=== PATIENT | female | born 1955 | race Caucasian/White ===

== ENCOUNTER 2019-03-16 17:10 | Inpatient (IN) | payer MEDICAID, OTHER ==
[~2019-03-16] VITALS: Ht 160 cm; Wt 65.3 kg
[2019-03-16] MEDS ORDERED: SODIUM CHLORIDE 0.9% 1,000 ML IVB ONE (18:43)
[2019-03-16] MEDS ORDERED: ONDANSETRON HCL 4 MG/2 ML VIAL IV ONE (18:45)
[2019-03-16] MEDS ORDERED: AZITHROMYCIN 500MG/ 250ML 250 ML IV ONE ×2 (19:30→19:49)
[2019-03-16] MEDS ORDERED: cefTRIAXone 1GM/50ML D5W 50 ML IV ONE (19:30)
[2019-03-16 19:31] LABS: Basophils # (auto) 0 uL; Basophils % (auto) 0.5 % (0.0-2.0); Eosinophils # (auto) 0 uL; Eosinophils % (auto) 0.1 % (0.0-7.0); Hematocrit 37.2 % (36.0-46.0); Hemoglobin 12.7 g/dL (12.2-16.2); Lymphocytes # (auto) 1.3 uL; Lymphocytes % (auto) 16.8 % (10.0-50.0); Mean Corpuscular Hemoglobin 30.2 pg (28.0-32.0); Mean Corpuscular Hgb Conc. 34.1 g/dL (32.0-36.0); Mean Corpuscular Volume 88.7 fL (80.0-100.0); Monocytes # (auto) 0.3 uL; Monocytes % (auto) 4.2 % (0.0-12.0); Neutrophils # (auto) 6.1 uL; Neutrophils % (auto) 78.4 % (37.0-80.0); Nucleated Red Blood Cells % 0.1 %; Platelet Count (auto) 389 10^3/uL (140-450); Red Blood Cells 4.19 10^6/uL (4.0-5.20); Red Cell Distribution Width 14.8 % (11.8-14.3); White Blood Cell 7.7 10^3/uL (4.4-10.8)
[2019-03-16 19:40] LABS: Urine Bacteria MANY /hpf (None Seen); Urine Blood TRACE /uL (Negative); Urine Mucus FEW (None Seen); Urine Specific Gravity 1.025 (1.001-1.035); Urine WBC 70 /hpf (0 - 5)
[2019-03-16 19:44] LABS: INR 1.04 (0.9-1.15); Partial Thromboplastin Time 28.6 sec (23.64-32.05)
[2019-03-16 19:52] LABS: Alanine Aminotransferase 64 U/L (13-56); Anion Gap 12 (5-15); Blood Urea Nitrogen 35 mg/dL (7-18); Carbon Dioxide 23 mmol/L (21-32); Chloride 98 mmol/L (98-107); Glucose 275 mg/dL (74-106); Magnesium 2.5 mg/dL (1.6-2.6); Sodium 133 mmol/L (136-145)
[2019-03-16 19:57] LABS: Alkaline Phosphatase 211 U/L (45-117); Aspartate Aminotransferase 72 U/L (15-37); BUN/Creatinine Ratio 29.4; GFR African American 59 mL/min; GFR Non-African American 49 mL/min; Total Protein 7.8 g/dL (6.4-8.2)
[2019-03-16 20:04] LABS: Amylase 24 U/L (25-115); Lipase 51 U/L (73-393)
[2019-03-16] MEDS ORDERED: SODIUM CHLORIDE 0.9% 500 ML IV ONE (21:30)
[2019-03-16] MEDS ORDERED: ONDANSETRON HCL 4 MG/2 ML VIAL IV PRN (21:45)
[2019-03-16] MEDS ORDERED: TEMAZEPAM 15 MG CAP PO PRN (21:45)
[2019-03-16] MEDS ORDERED: PROMETHAZINE W/CODEINE 5 ML ORAL SYRUP PO ONE (21:45)
[2019-03-16 22:03] VITALS: BP 126/83
--- NOTE | 2019-03-16 22:03 | NUR ---
MS admit from ER BHUPINDERSTEPHANIE admitted to tele/MS after SBAR received. Patient oriented to Ev Rangel RN primary RN, unit, room, bed, and unit policies regarding patient care and visiting hours. Placed on two liters nasal cannula. Bed is in lowest locked position with bed rails up x2 and call light is withi reach of the patient. Patient weighed by bedscale and encouraged to call if they need something. All questions and concerns addressed, patient verbalized understanding.
[2019-03-16] MEDS: FAMOTIDINE 20 MG TAB PO SCH (22:25)
[2019-03-16] MEDS: guaiFENesin-DM 100/10mg/5ml SYR PO PRN (22:25)
[2019-03-16 22:28] VITALS: BP 126/83
[2019-03-16] MEDS: POTASSIUM CHL 20MEQ/100ML 100 ML IV SCH (22:36)
[2019-03-16] MEDS: SODIUM CHLORIDE 0.9% 1,000 ML IV SCH (23:53)
[2019-03-17] MEDS: POTASSIUM CHL 20MEQ/100ML 100 ML IV SCH (01:36)
[2019-03-17] MEDS ORDERED: DEXTROSE (50%) 50ML SYRG IV PRN (02:45)
[2019-03-17] MEDS: guaiFENesin-DM 100/10mg/5ml SYR PO PRN ×2 (02:54→20:14)
[2019-03-17 05:06] VITALS: BP 122/71
[2019-03-17] MEDS: InsuLIN REG 1unit/0.01ml Soln (100units/ml) SC SCH ×4 (05:57→23:41)
[2019-03-17] MEDS: ACCU-CHEK COMFORT CURVE STRIP VI SCH ×4 (05:58→23:41)
--- NOTE | 2019-03-17 06:30 | NUR ---
[facility] Hospitalist regarding patients cough: Patient stated "This cough medicine isnt working. Is there something else I could try!" Patient has a prn Robitussin that patient says wasnt working for her. Paged hospitalist to ask if patient can have something else for cough.
--- NOTE | 2019-03-17 07:00 | NUR ---
Hospitalist called back: Hospitalist Jorje called back, told hospitalist that patients claire wasnt working for her cough. Hospitalist stated "I will take a look at her chart." Provided Hospitalist with room number and patients name to look at patients medication. Notified day shift nurse.
[2019-03-17 07:27] LABS: Albumin 1.6 g/dL (3.4-5.0); Calcium 7.9 mg/dL (8.5-10.1); Potassium 3.3 mmol/L (3.5-5.1)
[2019-03-17 07:31] LABS: BUN/Creatinine Ratio 30.2; Bilirubin, Total 0.6 mg/dL (0.2-1.0); Total Protein 6.4 g/dL (6.4-8.2)
--- NOTE | 2019-03-17 07:38 | NUR ---
Opening Shift Note Assumed care of patient, awake and alert x4 on 2 L NC, No S/S of distress/SOB or pain. Bed at lowest position ad call light within reach. Emptied and cleaned bedside commode. Instructed on POC and to call for assist PRN, will continue to monitor for changes Q1hr and PRN.
[2019-03-17 07:45] VITALS: BP 127/79
[2019-03-17 07:50] LABS: Basophils # (auto) 0 uL; Basophils % (auto) 0.7 % (0.0-2.0); Eosinophils # (auto) 0.1 uL; Eosinophils % (auto) 1.3 % (0.0-7.0); Hematocrit 35.2 % (36.0-46.0); Hemoglobin 11.9 g/dL (12.2-16.2); Lymphocytes # (auto) 1.5 uL; Lymphocytes % (auto) 27.3 % (10.0-50.0); Mean Corpuscular Hemoglobin 30.7 pg (28.0-32.0); Mean Corpuscular Hgb Conc. 33.9 g/dL (32.0-36.0); Mean Corpuscular Volume 90.3 fL (80.0-100.0); Monocytes # (auto) 0.3 uL; Monocytes % (auto) 5.9 % (0.0-12.0); Neutrophils # (auto) 3.5 uL; Neutrophils % (auto) 64.8 % (37.0-80.0); Nucleated Red Blood Cells % 0.1 %; Platelet Count (auto) 337 10^3/uL (140-450); Red Blood Cells 3.89 10^6/uL (4.0-5.20); White Blood Cell 5.3 10^3/uL (4.4-10.8)
[2019-03-17 09:00] VITALS: BP 127/79
[2019-03-17] MEDS: cefTRIAXone 1GM/50ML D5W 50 ML IV SCH (10:14)
[2019-03-17] MEDS: FAMOTIDINE 20 MG TAB PO SCH ×2 (10:14→21:37)
[2019-03-17] MEDS: AZITHROMYCIN 500MG/ 250ML 250 ML IV SCH (10:15)
[2019-03-17] MEDS: SODIUM CHLORIDE 0.9% 1,000 ML IV SCH ×2 (11:50→23:45)
--- NOTE | 2019-03-17 12:13 | NUR ---
Nutrition consult/assessment Notes please see attached link for complete assessment Est. Needs BW 61 [id number] kcal (25-30 kcal/kgBW), 61-79 gms pro (1.0-1.3 gms/kgBW r/t severe hypoalb). Will continue to monitor pertinent labs and reassess nutrient need prn Addendum: 03/17/19 at [address] Amended: Links added.
--- NOTE | 2019-03-17 12:38 | NUR ---
Pt requested a POA form. boom worker educated the pt about the use of the form.
--- NOTE | 2019-03-17 12:42 | NUR ---
Pt requested a POA. Pt was educated on the use of the form and how to fill it out.
[2019-03-17 13:00] VITALS: BP 133/79
--- NOTE | 2019-03-17 15:16 | NUR ---
Paged for Dr. Jj. Patient is requesting additional medication for her cough. Patient states that Robitussin cough syrup is not helping her. Awaiting call back.
[2019-03-17 16:36] VITALS: BP 137/83
--- NOTE | 2019-03-17 19:35 | NUR ---
Opening Shift Note Assumed care of patient, awake and alert oriented x4. No S/S of distress/SOB or pain noted. Bed is in lowest locked position with bed rails up x4 and call light is within reach of the patient. Instructed on POC and to call for assist PRN.
[2019-03-17] MEDS: ACETAMINOPHEN 325 MG TAB PO PRN (20:15)
[2019-03-17] MEDS: Pro-Stat SF 30ml Vanilla PO SCH (21:38)
[2019-03-18 00:02] VITALS: BP 135/77
[2019-03-18] MEDS: guaiFENesin-DM 100/10mg/5ml SYR PO PRN ×2 (04:48→11:41)
[2019-03-18] MEDS: ACETAMINOPHEN 325 MG TAB PO PRN ×3 (04:49→18:35)
[2019-03-18 05:22] VITALS: BP 143/84
[2019-03-18] MEDS: InsuLIN REG 1unit/0.01ml Soln (100units/ml) SC SCH ×3 (05:55→18:00)
[2019-03-18] MEDS: ACCU-CHEK COMFORT CURVE STRIP VI SCH ×3 (05:55→18:10)
--- NOTE | 2019-03-18 07:00 | NUR ---
Hospitalist called back: Hospitalist Jorje called back, told hospitalist that patients Mesfin wasnt working for her cough. Hospitalist stated "I will take a look at her chart." Provided Hospitalist with room number and patients name to look at patients medication. Will endorse to day shift nurse Addendum: 03/19/19 at 0700 by Ev Rangel RN RN Wrong date: meant for 03/17/2019
[2019-03-18] MEDS: AZITHROMYCIN 500MG/ 250ML 250 ML IV SCH (09:10)
[2019-03-18] MEDS: cefTRIAXone 1GM/50ML D5W 50 ML IV SCH (09:10)
[2019-03-18] MEDS: FAMOTIDINE 20 MG TAB PO SCH ×2 (09:10→21:52)
[2019-03-18] MEDS: Pro-Stat SF 30ml Vanilla PO SCH ×2 (09:57→21:54)
[2019-03-18 09:58] VITALS: BP 149/92
[2019-03-18 13:41] VITALS: BP 140/94
[2019-03-18] MEDS: SODIUM CHLORIDE 0.9% 1,000 ML IV SCH (14:30)
[2019-03-18 17:30] VITALS: BP 154/90
--- NOTE | 2019-03-18 19:35 | NUR ---
Opening Shift Note Assumed care of patient, awake and alert oriented x4. No S/S of distress/SOB noted. Bed is in lowest locked position with bed rails up x2 and call light is within reach of the patient. Instructed on POC and to call for assist PRN.
[2019-03-18 21:51] VITALS: BP 143/93
[2019-03-19] MEDS: InsuLIN REG 1unit/0.01ml Soln (100units/ml) SC SCH ×4 (00:16→18:00)
[2019-03-19] MEDS: ACCU-CHEK COMFORT CURVE STRIP VI SCH ×4 (00:17→18:00)
--- NOTE | 2019-03-19 00:30 | NUR ---
Patient changed rooms from 251A to 231. All belongings transferred to patients room. No s/s of distress or SOB noted. Patient tolerated well.
[2019-03-19] MEDS: ACETAMINOPHEN 325 MG TAB PO PRN ×3 (00:38→22:35)
[2019-03-19] MEDS: SODIUM CHLORIDE 0.9% 1,000 ML IV SCH ×2 (03:50→17:10)
[2019-03-19 05:22] VITALS: BP 136/87
--- NOTE | 2019-03-19 07:09 | NUR ---
Closing note: Patient resting in bed with breaths even and unlabored. No s/s of distress SOB noted. Will endorse care to day shift nurse.
[2019-03-19 08:13] VITALS: BP 156/91
[2019-03-19] MEDS: cefTRIAXone 1GM/50ML D5W 50 ML IV SCH (08:24)
[2019-03-19] MEDS: Pro-Stat SF 30ml Vanilla PO SCH ×2 (09:56→21:46)
[2019-03-19] MEDS: AZITHROMYCIN 500MG/ 250ML 250 ML IV SCH (09:56)
[2019-03-19] MEDS: FAMOTIDINE 20 MG TAB PO SCH ×2 (09:56→21:46)
[2019-03-19] MEDS: guaiFENesin-DM 100/10mg/5ml SYR PO PRN (10:23)
[2019-03-19 12:24] VITALS: BP 155/93
[2019-03-19 17:28] VITALS: BP 131/84
--- NOTE | 2019-03-19 18:00 | NUR ---
Pt alert and oriented, showing no change from initial assessment. Tylenol given, times one, during this shift for c/o right rib pain, with good effectiveness. No other c/o pain or discomfort.
--- NOTE | 2019-03-19 19:10 | NUR ---
Opening Shift Note Received report from martha Stephen RN. Assumed care of patient, awake and alert oriented x4 amd ambulatory. No S/S of distress/SOB or pain noted. Bed is in lowest locked position with bed rails up x4 and call light is within reach of the patient. Instructed on POC and to call for assist PRN.
[2019-03-19 20:00] VITALS: BP 150/97
[2019-03-19 22:00] VITALS: BP 150/97
[2019-03-20] MEDS: ACCU-CHEK COMFORT CURVE STRIP VI SCH ×4 (00:28→18:10)
[2019-03-20] MEDS: InsuLIN REG 1unit/0.01ml Soln (100units/ml) SC SCH ×4 (00:29→18:10)
[2019-03-20 05:00] VITALS: BP 145/91
[2019-03-20] MEDS: SODIUM CHLORIDE 0.9% 1,000 ML IV SCH ×2 (05:44→19:50)
--- NOTE | 2019-03-20 07:48 | NUR ---
OPENING SHIFT NOTE ASSUMED CARE OF PATIENT. PATIENT RESTING COMFORTABLY IN BED WITH EYES CLOSED. NO S/S OF DISTRESS OR SOB NOTED. BED IN LOWEST LOCKED POSITION, CALL LIGHT WITHIN REACH. WILL CONTINUE TO MONITOR.
[2019-03-20 08:12] VITALS: BP 146/97
[2019-03-20] MEDS: cefTRIAXone 1GM/50ML D5W 50 ML IV SCH (09:14)
[2019-03-20] MEDS: FAMOTIDINE 20 MG TAB PO SCH ×2 (09:14→22:56)
[2019-03-20] MEDS: ACETAMINOPHEN 325 MG TAB PO PRN ×2 (09:14→18:50)
[2019-03-20] MEDS: AZITHROMYCIN 500MG/ 250ML 250 ML IV SCH (09:59)
[2019-03-20] MEDS: Pro-Stat SF 30ml Vanilla PO SCH ×2 (09:59→22:56)
[2019-03-20 12:49] VITALS: BP 146/98
[2019-03-20 17:00] VITALS: BP 143/98
--- NOTE | 2019-03-20 19:10 | NUR ---
Opening Shift Note Report received from martha Bhagat RN. Assumed care of patient, resting in bed on a high fowlers position, eyes closed with even and unlabored respirations. No S/S of distress/SOB or pain. Instructed on POC and to call for assist PRN, will continue to monitor for changes Q1hr and PRN. Bed placed in lowest position and call light within reach.
--- NOTE | 2019-03-20 19:22 | NUR ---
END OF SHIFT NOTE PATIENT RESTING COMFORTABLY IN BED AT THIS TIME. NO S/S OF DISTRESS OR SOB NOTED. BED IN LOWEST LOCKED POSITION, CALL LIGHT WITHIN REACH. CARE ENDORSED TO NOC RN.
[2019-03-20 20:00] VITALS: BP 144/93
[2019-03-20 22:00] VITALS: BP 142/93
--- NOTE | 2019-03-21 | NUR ---
PATIENT REFUSED BLOOD SUGAR CHECK. PATIENT STATES SHE IS NOT DIABETIC AND INSULIN CAUSES HER HEADACHE. EDUCATED PATIENT ON THE IMPORTANCE OF KNOWING AND CONTROLLING BLOOD SUGAR. PATIENT VERBALIZED UNDERSTANDING, BUT STILL REFUSED TO HAVE IT CHECK.
[2019-03-21 04:39] VITALS: BP 157/90
[2019-03-21] MEDS: InsuLIN REG 1unit/0.01ml Soln (100units/ml) SC SCH ×2 (06:00)
[2019-03-21] MEDS: ACCU-CHEK COMFORT CURVE STRIP VI SCH ×2 (06:00)
--- NOTE | 2019-03-21 07:50 | NUR ---
OPENING SHIFT NOTE ASSUMED CARE OF PATIENT. PATIENT AWAKE AND ALERT SITTING UP IN CHAIR AT BEDSIDE. NO S/S OF DISTRESS OR SOB NOTED. REVIEWED POC WITH PATIENT. PATIENT STATED HER IV IS HURTING AND SHE DOES NOT WANT A NEW IV BECAUSE "EVERYONE IS JUST USING ME FOR PRACTICE OR SOMETHING" AND ALSO IS REFUSING TO HAVE HER BLOOD SUGAR CHECKED BECAUSE PATIENT STATED "I AM NOT DIABETIC, I KNOW MY BODY" THIS RN INSTRUCTED PATIENT ON IMPORTANCE OF HAVING AN IV WHILE IN THE HOSPITAL WELL HER ANTIBIOTIC THERAPY. ALSO INFORMED PATIENT OF IMPORTANCE OF MAINTAINING BLOOD SUGAR WNL PATIENT VERBALIZED UNDERSTANDING BUT STILL REFUSES TO RECEIVE NEW IV ACCESS AND CHECK BLOOD SUGAR. CONTINUING TO MONITOR PATIENT.
[2019-03-21 08:00] VITALS: BP 155/96
[2019-03-21] MEDS: cefTRIAXone 1GM/50ML D5W 50 ML IV SCH (09:00)
[2019-03-21] MEDS: AZITHROMYCIN 500MG/ 250ML 250 ML IV SCH (09:05)
--- NOTE | 2019-03-21 10:25 | NUR ---
AT BEDSIDE DR ARRIAGA AT BEDSIDE AT THIS TIME, NEW ORDERS FOR DISCHARGE. WILL CARRY OUT ORDERS RECEIVED.
[2019-03-21 11:07] VITALS: BP 155/96
--- NOTE | 2019-03-21 12:25 | NUR ---
DISCHARGED PATIENT DISCHARGED HOME VIA AMBULATORY TO PRIVATE FAMILY VEHICLE AFTER ALL DISCHARGE INSTRUCTIONS GIVEN AND ALL QUESTIONS AND CONCERNS ADDRESSED. PATIENT WAS GIVEN EXTENSIVE INFORMATION REGARDING DIABETES INCLUDING, DIABETIC TEACHING CLASS INFORMATION, DIET MANAGEMENT AND MORE. PATIENT WAS ALSO GIVEN COUPON FOR [facility] AND INFORMATION REGARDING DEPARTMENT OF PUBLIC HEALTH, AND [facility]. PATIENT TO FOLLOW UP WITH DR ARRIAGA IN 1 WK BUT UNABLE TO MAKE APPOINTMENT DUE TO LUNCH HOURS. PATIENT GIVEN INFORMATION TO CONTACT DR BELL OFFICE. IV THAT WAS NO LONGER WORKING WAS REMOVED USING CLEAN STERILE TECHNIQUE, PRESSURE DRESSING APPLIED, CATHETER WAS INTACT UPON REMOVAL. PATIENT SHOWED NO S/S OF DISTRESS OR SOB UPON DISCHARGE.
== END 2019-03-21 12:25 | disposition home or self-care (01) | DRG 689 ==
LOC: ER 17:10 → OVERFLOW 21:31 → EAST 22:15
PROVIDERS: ADMIT Nurse Practitioner; ATTEND Internal Medicine Pulmonary Disease
DX: N39.0 Urinary tract infection, site not specified (principal); J18.1 Lobar pneumonia, unspecified organism; E87.1 Hypo-osmolality and hyponatremia; E86.0 Dehydration; E87.6 Hypokalemia; E11.9 Type 2 diabetes mellitus without complications; Z60.2 Problems related to living alone
CPT/HCPCS: 36415; 71046; 74176; 80053; 81001; 82150; 82962; 83036; 83605; 83690; 83735; 84484; 85025; 85610; 85730; 87040; 87086; 93005; 94761; 96361; 96365; 96375; G0378; J0696; J1815; J2405; J3480

== ENCOUNTER 2020-02-21 14:02 | Emergency (ER) | payer MEDICAID ==
[~2020-02-21] VITALS: Ht 167.6 cm; Wt 54.4 kg
[2020-02-21 15:10] VITALS: BP 157/90
== END 2020-02-21 16:54 | disposition home or self-care (01) ==
LOC: ER 14:02
DX: S46.911A Strain of unspecified muscle, fascia and tendon at shoulder and upper arm level, right arm, initial encounter (principal); M62.838 Other muscle spasm; X58.XXXA Exposure to other specified factors, initial encounter; Y93.89 Activity, other specified; Y92.89 Other specified places as the place of occurrence of the external cause; Y99.8 Other external cause status
CPT/HCPCS: 73030

== ENCOUNTER 2020-04-03 12:41 | Emergency (ER) | payer MEDICAID ==
[~2020-04-03] VITALS: Ht 167.6 cm; Wt 54.4 kg
[2020-04-03 13:24] VITALS: BP 127/81
== END 2020-04-03 13:58 | disposition home or self-care (01) ==
LOC: ER 12:41
DX: S46.911A Strain of unspecified muscle, fascia and tendon at shoulder and upper arm level, right arm, initial encounter (principal); X58.XXXA Exposure to other specified factors, initial encounter; Y93.89 Activity, other specified; Y92.89 Other specified places as the place of occurrence of the external cause; Y99.8 Other external cause status

== ENCOUNTER 2022-08-04 15:46 | Emergency (ER) | payer MEDICAID ==
[~2022-08-04] VITALS: Ht 162.6 cm; Wt 54.0 kg
[2022-08-04] MEDS ORDERED: NAP500T PO (20:53)
[2022-08-04 21:15] VITALS: BP 128/92
== END 2022-08-04 21:19 | disposition home or self-care (01) ==
LOC: ER 15:46
DX: S63.610A Unspecified sprain of right index finger, initial encounter (principal); Z79.899 Other long term (current) drug therapy; W22.8XXA Striking against or struck by other objects, initial encounter; Y93.89 Activity, other specified; Y92.89 Other specified places as the place of occurrence of the external cause; Y99.8 Other external cause status
CPT/HCPCS: 73130

== ENCOUNTER 2024-10-04 17:00 | Inpatient (IN) | payer MEDICAID ==
[~2024-10-04] VITALS: Ht 165.1 cm; Wt 55.1 kg
[~2024-10-04 17:00] MED LIST: NAP500T PO
--- NOTE | 2024-10-04 17:18 | ED.PDOC ---
History of Present Illness HPI Comments 69 y/o F is BIBA for c/o ALOC w/abnormal behavior and generalized weakness, today. Per EMS report, patient's "friend" called on patient behalf after endorsing on her taking nonsensically over the phone during a conversation they were having, this afternoon. On scene, patient was found A&Ox4 and, on occasions , talking nonsensically, walking with an unsteady gait, and incontinent. Patient was also noted to have been found with a blood glucose of 354, blood pressure of 151/101, pulse rate of 150, and a temperature of 102.0F, with all remaining vitals within normal limits. En route, patient was given 350ml NS. Upon arrival, patient was commented to have been unchanged from initial found state, with patient endorsing on having no current symptoms at this time or acknowledgement of abnormal behavior, today. Time Seen by MD: 17:00 Primary Care Provider: DENIES Reviewed Notes: Nurses Notes, Medications, Allergies Allergies: Coded Allergies: NO KNOWN ALLERGIES (Unverified , 03/16/19) Home Meds Active Scripts Naproxen (NAPROSYN TABLET) 500 Mg Tb, 1 TAB PO BID PRN, #30 TAB 0 Refills Prov:DANIELLA CHAVIRA 08/04/22 Information Source: Patient Mode of Arrival: EMS Severity: Moderate Timing: Hours Duration: Since onset Prehospital treatment: 12 Lead EKG, Accucheck (354), Pourer Bull Ladle, IVF (350ml NS), Other (IV access) Past Medical History PAST MEDICAL HISTORY: Denies Surgical History: Denies all surgeries LOT BOSS History: No Pertinent LOT BOSS History Family History Family History: Unknown Social History Smoker: Non-Smoker Alcohol: Denies ETOH Use Drugs: Denies Drug Use Lives In: Home Constitutional: denies: chills, diaphoresis, fatigue, fever, malaise, sweats, weakness, others EENTM: denies: blurred vision, double vision, ear bleeding, ear discharge, ear drainage, ear pain, ear ringing, eye pain, eye redness, hearing loss, mouth pain, mouth swelling, nasal discharge, nose bleeding, nose congestion, nose pain, photophobia, tearing, throat pain, throat swelling, voice changes, others Respiratory: denies: cough, hemoptysis, orthopnea, SOB at rest, shortness of breath, SOB with excertion, stridor, wheezing, others Cardiovascular: denies: chest pain, dizzy spells, diaphoresis, Dyspnea on exertion, edema, irregular heart beat, left arm pain, lightheadedness, palpitations, PND, syncope, others Gastrointestinal: denies: abdomen distended, abdominal pain, blood streaked bowels, constipated, diarrhea, dysphagia, difficulty swallowing, hematemesis, melena, nausea, poor appetite, poor fluid intake, rectal bleeding, rectal pain, vomiting, others Genitourinary: denies: abnormal vagina bleeding, burning, dyspareunia, dysuria, flank pain, frequency, hematuria, incontinence, pain, , vagina discharge, urgency, others Neurological: reports: weakness, others (ALOC w/abnormal behavior); denies: dizziness, fainting, headache, left sided numbness, left sided weakness, numbness, paresthesia, pre-existing deficit, right sided numbness, right sided weakness, seizure, speech problems, tingling, tremors Musculoskeletal: denies: back pain, gout, joint pain, joint swelling, muscle pain, muscle stiffness, neck pain, others Integumetry: denies: bruises, change in color, change in hair/nails, dryness, laceration, lesions, lumps, rash, wounds, others Allergic/Immunocompromised: denies: Difficulty Healing, Frequent Infections, Hives, Itching, others Hematologic/Lymphatic: denies: anemia, blood clots, easy bleeding, easy bruising, swollen glands, others Endocrine: denies: excessive hunger, excessive sweating, excessive thirst, excessive urination, flushing, intolerance to cold, intolerance to heat, unexplained weight gain, unexplained weight loss, others Psychiatric: denies: anxiety, bipolar disorder, depression, hopeless, panic disorder, schizophrenia, sleepless, suicidal, others All Other Systems: Reviewed and Negative Physical Exam General Appearance: Moderate Distress HEENT: Normal ENT Inspection, Pharynx Normal, TMs Normal Neck: Full Range of Motion, Non-Tender, Normal, Normal Inspection Respiratory: Chest Non-Tender, Lungs Clear, No Accessory Muscle Use, No Respiratory Distress, Normal Breath Sounds Cardiovascular: No Edema, No JVD, No Murmur, No Gallop, Tachycardia Breast Exam: Deferred Gastrointestinal: No Organomegaly, Non Tender, No Pulsatile Mass, Normal Bowel Sounds, Soft Genitalia: Deferred Pelvic: Deferred Rectal: Deferred Extremities: No calf tenderness, Normal capillary refill, No pedal edema Musculoskeletal : Apperance: Normal Neurologic: structural steel equipment erector II-XII nml as Tested, Motor Weakness, Normal Affect, Normal Mood, No Sensory Deficits, Other (The patient was able to answer questions but is slightly lethargic) Cerebellar Function: Unable to Test Reflexes: Normal Skin: Dry, Pallor, Warm Lymphatic: No Adenopathy Was a procedure done? Was a procedure done?: No EKG EKG : Pulse Rate (adult): 116 [place]: Normal Cardiac Rhythm: ST Block: None Hypertrophy: None ST: Normal Differential Dx Considerations may include: encephalopathy, dehydration, electrolyte imbalance, UTI, viral syndrome X-Ray, Labs, Meds, VS Vital Signs Date Time Temp Pulse Resp B/P (MAP) Pulse Ox O2 Delivery O2 Flow Rate FiO2 10/04/24 19:00 120 20 132/85 (101) 95 10/04/24 18:00 109 20 138/78 (98) 95 10/04/24 17:27 112 93 Nasal Cannula* 3 32 10/04/24 17:24 97.7 112 21 147/85 (105) 93 97.7 10/04/24 17:23 112 10/04/24 17:19 116 10/04/24 17:18 116 10/04/24 17:10 102.1 136 20 151/101 (118) 96 10/04/24 17:03 116 Lab Test 10/04/24 18:39 10/04/24 18:06 Range/Units Urine Color Light-yellow Yellow Urine Clarity Clear Clear Urine pH 5.5 5.0-9.0 Urine Specific [place] 1.036 H 1.001-1.035 Urine Protein Trace H Negative Urine Ketones 3+ H Negative Urine Blood Negative Negative /uL Urine Nitrite Negative Negative Urine Bilirubin Negative Negative Urine Urobilinogen Normal Negative mg/dL Urine Leukocyte Esterase Negative Negative /uL Urine RBC 1 0 - 4 /hpf Urine WBC 2 0 - 5 /hpf Urine Squamous Epithelial Cells Few <5 /hpf Urine Bacteria None seen None Seen /hpf Urine Glucose 4+ H Normal mg/dL White Blood Count 5.1 4.4-10.8 10^3/uL Red Blood Count 4.94 4.0-5.20 10^6/uL Hemoglobin 15.0 12.2-16.2 g/dL Hematocrit 43.9 36.0-46.0 % Mean Corpuscular Volume 88.9 80.0-100.0 fL Mean Corpuscular Hemoglobin 30.3 28.0-32.0 pg Mean Corpuscular Hemoglobin Concent 34.0 32.0-36.0 g/dL Red Cell Distribution Width 13.6 11.8-14.3 % Platelet Count 226 140-450 10^3/uL Mean Platelet Volume 7.5 6.9-10.8 fL Neutrophils (%) (Auto) 84.0 H 37.0-80.0 % Lymphocytes (%) (Auto) 10.5 10.0-50.0 % Monocytes (%) (Auto) 4.9 0.0-12.0 % Eosinophils (%) (Auto) 0.4 0.0-7.0 % Basophils (%) (Auto) 0.2 0.0-2.0 % Neutrophils # (Auto) 4.3 1.6-8.6 10 ^3/uL Lymphocytes # (Auto) 0.5 0.4-5.4 10 ^3/uL Monocytes # (Auto) 0.2 0-1.3 10 ^3/uL Eosinophils # (Auto) 0 0-0.8 10 ^3/uL Basophils # (Auto) 0 0-0.2 10 ^3/uL Nucleated Red Blood Cells 0.1 % Sodium Level 136 136-145 mmol/L Potassium Level 4.3 3.5-5.1 mmol/L Chloride Level 102 98-107 mmol/L Carbon Dioxide Level 21 20-31 mmol/L Anion Gap 13 5-15 Blood Urea Nitrogen 14 9-23 mg/dL Creatinine 1.24 H 0.550-1.02 mg/dL Glomerular Filtration Rate Calc 47 >90 mL/min BUN/Creatinine Ratio 11.3 10.0-20.0 Serum Glucose 381 H 74-106 mg/dL Lactic Acid Level 2.2 *H 0.4-2.0 mmol/L Calcium Level 9.6 8.7-10.4 mg/dL Total Bilirubin 0.5 0.2-1.0 mg/dL Aspartate Amino Transferase (AST) 22 13-40 U/L Alanine Aminotransferase (ALT) 22 7-40 U/L Alkaline Phosphatase 91 46-116 U/L Total Protein 7.3 5.7-8.2 g/dL Albumin 4.2 3.2-4.8 g/dL Plasma/Serum Blood Alcohol < 3.0 <10 mg/dL Current Medications Medications (Trade) Dose Ordered Sig/Suyapa Route Start Time Stop Time Status Last Admin Sodium Chloride 1,000 ml @ 1,000 mls/hr Q1H ONCE IV 10/04/24 18:15 10/04/24 19:14 DC 10/04/24 18:24 The chest x-ray shows: IMPRESSION: 1. No acute disease. 2. Mild ectasia descending thoracic aorta. The patient was given an IV Hep-Lock as well as a L bolus of normal saline The CBC is within normal limits The lactic acid level is elevated at 2.2 The patient was being bolused with normal saline per sepsis protocol. The patient was started on vancomycin as well as Rocephin The patient was being admitted Images Reviewed?: Images reviewed and evaluated by me Time of 1ST Reevaluation: 17:30 Reevaluation 1ST: Unchanged Patient Education/Counseling: Diagnosis, Treatment, Prognosis Family Education/Counseling: No Family Present Departure 1 Departure Time of Disposition: 19:27 Impression: Primary Impression: Sepsis Qualified Codes: A41.9 - Sepsis, unspecified organism; R65.20 - Severe sepsis without septic shock Additional Impression: Generalized weakness Disposition: ADMITTED INPATIENT [facility]mit to[facility] Condition: Fair Critical Care Note Critical Care Time?: Yes (55 min-critical care time only) Stability Stability form required: Yes Unstable for transfer: Telemetry monitoring (Telemetry monitoring required), ED Physician Assesment (Clinical assesment) Heart Score Heart Score: Heart Score Response (Comments) Value History N/A 0 EKG Normal 0 Age >65 2 Risk Factors No known risk factors 0 Troponin Normal limit 0 Total 2 I personally scribed for TEODORO HEARN MD ([email or web address]) on 10/04/24 at 17:18. Electronically submitted by Devyn Antunez ([email or web address]). TEODORO HEARN MD Oct 04, 2024 17:18
[2024-10-04 17:27] VITALS: PULSE 112; O2SAT 93
[2024-10-04] MEDS: SODIUM CHLORIDE 0.9% 1,000 ML IV ONE (18:24)
--- NOTE | 2024-10-04 18:24 | DVH ---
CHEST RADIOGRAPH Indication: weakness Technique: Single frontal view of the chest was obtained COMPARISON: None FINDINGS: Lines and Tubes: None Lungs: Clear Pleura: No effusion. No pneumothorax. Cardiomediastinal contours: Unremarkable Bones: Unremarkable IMPRESSION: 1. No acute disease. 2. Mild ectasia descending thoracic aorta.
[2024-10-04 18:34] LABS: Basophils # (auto) 0 10 ^3/uL (0-0.2); Basophils % (auto) 0.2 % (0.0-2.0); Eosinophils # (auto) 0 10 ^3/uL (0-0.8); Eosinophils % (auto) 0.4 % (0.0-7.0); Hematocrit 43.9 % (36.0-46.0); Lymphocytes # (auto) 0.5 10 ^3/uL (0.4-5.4); Lymphocytes % (auto) 10.5 % (10.0-50.0); Mean Corpuscular Hemoglobin 30.3 pg (28.0-32.0); Mean Corpuscular Volume 88.9 fL (80.0-100.0); Monocytes # (auto) 0.2 10 ^3/uL (0-1.3); Monocytes % (auto) 4.9 % (0.0-12.0); Neutrophils # (auto) 4.3 10 ^3/uL (1.6-8.6); Nucleated Red Blood Cells % 0.1 %; Platelet Count (auto) 226 10^3/uL (140-450); Red Blood Cells 4.94 10^6/uL (4.0-5.20); Red Cell Distribution Width 13.6 % (11.8-14.3); White Blood Cell 5.1 10^3/uL (4.4-10.8)
[2024-10-04 18:40] LABS: Urine Bacteria None Seen /hpf (None Seen)
[2024-10-04 18:52] LABS: Alanine Aminotransferase 22 U/L (7-40); Albumin 4.2 g/dL (3.2-4.8); Alkaline Phosphatase 91 U/L (46-116); Anion Gap 13 (5-15); Aspartate Aminotransferase 22 U/L (13-40); BUN/Creatinine Ratio 11.3 (10.0-20.0); Blood Urea Nitrogen 14 mg/dL (9-23); Calcium 9.6 mg/dL (8.7-10.4); Carbon Dioxide 21 mmol/L (20-31); Chloride 102 mmol/L (98-107); Potassium 4.3 mmol/L (3.5-5.1)
[2024-10-04 18:53] LABS: Bilirubin, Total 0.5 mg/dL (0.2-1.0); Total Protein 7.3 g/dL (5.7-8.2)
[2024-10-04 18:57] LABS: Blood Alcohol < 3.0 mg/dL (<10); Glucose 381 mg/dL (74-106); Sodium 136 mmol/L (136-145)
[2024-10-04 19:00] LABS: Urine Blood Negative /uL (Negative); Urine Clarity Clear (Clear); Urine Color Light-Yellow (Yellow); Urine Protein, UAD TRACE (Negative); Urine Specific Gravity 1.036 (1.001-1.035); Urine Urobilinogen Normal (Negative); Urine WBC 2 /hpf (0 - 5); Urine pH 5.5 (5.0-9.0)
[2024-10-04 19:15] LABS: Lactic Acid w/Reflex 2.2 mmol/L (0.4-2.0)
[2024-10-04 19:45] VITALS: PULSE 110; RESP 18; O2SAT 94
[2024-10-04] MEDS: cefTRIAXone 1GM/50ML D5W 50 ML IV ONE (20:47)
[2024-10-04] MEDS: VANCOMYCIN 1GM/250ML KIT 250 ML IV ONE (21:00)
--- NOTE | 2024-10-04 21:12 | DVHHPRES ---
History of Present Illness Resident Creating Document: ELBERT NAGEL RESIDENT History of Present Illness This is a 69-year-old female with past medical history type 2 diabetes mellitus presented to the ED with a chief complaint of generalized weakness, fatigue, low-grade fever and dry cough for last 3 days prior to this admission. Patient states that she was not eating since yesterday and also complains of fever, chills and intermittent shortness of breath for last 3 days. She denies productive cough, chest pain, dizziness, diaphoresis, dysuria, hematuria, sick contact or recent traveling, abdominal pain, nausea, vomiting or any change in bowel habit. The patient has no PCP and does not take medication on regular basis. Past Medical History Type 2 Diabetes mellitus Past Surgical History None Family History None Past Social History Lives alone Nonsmoker, nonalcoholic and never tried any drugs Review of Systems Constitutional: Yes: Fever, Chills, Weakness, Malaise; No: Sweats, Other Eyes: No: Pain, Vision change, Conjunctivae inflammation, Eyelid inflammation, Other, Redness ENT: No: Ear pain, Ear discharge, Nose pain, Nose discharge, Nose congestion, Mouth pain, Mouth swelling, Throat pain, Throat swelling, Other Respiratory: Cough, Dry, Shortness of breath; No: SOB with excertion, Wheezing, Hemoptysis, Pleuritic Pain, Sputum, Wheezing, Other Cardiovascular: No: Chest Pain, Palpitations, Orthopnea, Paroxysmal Noc. Dyspnea, Edema, Lt Headedness, Other Gastrointestinal: No: Nausea, Vomiting, Abdominal Pain, Diarrhea, Constipation, Melena, Hematochezia, Other Genitourinary: No Dysuria, No Frequency, No Incontinence, No Hematuria, No Retention, No Other Musculoskeletal: No: other, neck pain, shoulder pain, arm pain, back pain, hand pain, leg pain, foot pain Skin: No: Rash, Lesions, Jaundice, Bruising, Other Neurological: No: Weakness, Numbness, Incoordination, Change in speech, Confusion, Seizures, Other Allergies: Coded Allergies: NO KNOWN ALLERGIES (Unverified , 03/16/19) Exam Vital Signs Vital Signs Date Time Temp Pulse Resp B/P (MAP) Pulse Ox O2 Delivery O2 Flow Rate FiO2 10/04/24 19:00 120 20 132/85 (101) 95 10/04/24 17:27 Nasal Cannula* 3 32 10/04/24 17:24 97.7 97.7 Exam Physical examination: General Appearance: Alert, Oriented X3, Cooperative, mild distress with 2L o2 through nasal canula HEENT: Atraumatic, PERRLA, EOMI, Mucous membrane moist/pink Respiratory: Clear to auscultation, Normal air movement Cardiovascular: Regular rate, Normal S1, Normal S2, No murmurs, no chest wall tenderness Abdominal: Normal bowel sounds, Soft, No tenderness, No hepatospenomegaly, No masses Extremities: No clubbing, No cyanosis, No edema, Normal pulses, No tenderness/swelling Skin: No rashes, No breakdown, No significant lesion Neuro: Normal gait, Normal speech, Strength at 5/5 X4 ext, Normal tone, Sensation intact, grossly intact cranial nerves Psych/Mental Status: Mental status NL, Mood NL Labs/Xrays Labs Test 10/04/24 20:00 10/04/24 18:39 10/04/24 18:06 Range/Units Lactic Acid Level 2.3 *H 0.4-2.0 mmol/L Urine Color Light-yellow Yellow Urine Clarity Clear Clear Urine pH 5.5 5.0-9.0 Urine Specific [place] 1.036 H 1.001-1.035 Urine Protein Trace H Negative Urine Ketones 3+ H Negative Urine Blood Negative Negative /uL Urine Nitrite Negative Negative Urine Bilirubin Negative Negative Urine Urobilinogen Normal Negative mg/dL Urine Leukocyte Esterase Negative Negative /uL Urine RBC 1 0 - 4 /hpf Urine WBC 2 0 - 5 /hpf Urine Squamous Epithelial Cells Few <5 /hpf Urine Bacteria None seen None Seen /hpf Urine Glucose 4+ H Normal mg/dL White Blood Count 5.1 4.4-10.8 10^3/uL Red Blood Count 4.94 4.0-5.20 10^6/uL Hemoglobin 15.0 12.2-16.2 g/dL Hematocrit 43.9 36.0-46.0 % Mean Corpuscular Volume 88.9 80.0-100.0 fL Mean Corpuscular Hemoglobin 30.3 28.0-32.0 pg Mean Corpuscular Hemoglobin Concent 34.0 32.0-36.0 g/dL Red Cell Distribution Width 13.6 11.8-14.3 % Platelet Count 226 140-450 10^3/uL Mean Platelet Volume 7.5 6.9-10.8 fL Neutrophils (%) (Auto) 84.0 H 37.0-80.0 % Lymphocytes (%) (Auto) 10.5 10.0-50.0 % Monocytes (%) (Auto) 4.9 0.0-12.0 % Eosinophils (%) (Auto) 0.4 0.0-7.0 % Basophils (%) (Auto) 0.2 0.0-2.0 % Neutrophils # (Auto) 4.3 1.6-8.6 10 ^3/uL Lymphocytes # (Auto) 0.5 0.4-5.4 10 ^3/uL Monocytes # (Auto) 0.2 0-1.3 10 ^3/uL Eosinophils # (Auto) 0 0-0.8 10 ^3/uL Basophils # (Auto) 0 0-0.2 10 ^3/uL Nucleated Red Blood Cells 0.1 % Sodium Level 136 136-145 mmol/L Potassium Level 4.3 3.5-5.1 mmol/L Chloride Level 102 98-107 mmol/L Carbon Dioxide Level 21 20-31 mmol/L Anion Gap 13 5-15 Blood Urea Nitrogen 14 9-23 mg/dL Creatinine 1.24 H 0.550-1.02 mg/dL Glomerular Filtration Rate Calc 47 >90 mL/min BUN/Creatinine Ratio 11.3 10.0-20.0 Serum Glucose 381 H 74-106 mg/dL Calcium Level 9.6 8.7-10.4 mg/dL Total Bilirubin 0.5 0.2-1.0 mg/dL Aspartate Amino Transferase (AST) 22 13-40 U/L Alanine Aminotransferase (ALT) 22 7-40 U/L Alkaline Phosphatase 91 46-116 U/L Total Protein 7.3 5.7-8.2 g/dL Albumin 4.2 3.2-4.8 g/dL Plasma/Serum Blood Alcohol < 3.0 <10 mg/dL Assessment/Plan Assessment/Plan Assessment and plan: # Possible early sepsis due to unknown etiology - Patient is tachycardic and elevated lactic acid - IV normal saline at 75 mL/hour - IV ceftriaxone 1 g daily and IV vancomycin as per pharmacy - Ordered blood C/S, UA, urine C/S # Hyperglycemia with normal anion gap ketoacidosis, HbA1C> 14 - Lantus 10 units once and q.p.m. - Moderate sliding scale of insulin # Possible subclinical hyperthyroidism - TSH is low - T3, T4, thyrotropin receptor antibody and U/S of the thyroid gland # Influenza A infection - Tamiflu 75 mg p.o. b.i.d. # PUD prophylaxis - Protonix 40 mg p.o. daily # DVT prophylaxis - Lovenox 40 mg sc daily Goal of care discussed with the patient for more than 20 minutes full code Plan discussed with Dr. Khan Plan discussed with: Patient, Other My Orders Orders - ELBERT NAGEL Procedure Category Date Status Time Admit ADMIT 10/04/24 Transmitted 21:05 Beta-Hydroxybutyrate LAB 10/04/24 Logged 21:05 Mrsa Screen AMANDA 10/04/24 Logged 21:05 Covid19 Antigen Jina LAB 10/04/24 Logged Rapid Influenza A&B LAB 10/04/24 Logged 21:05 Urinalysis LAB 10/04/24 Logged 21:05 Blood Culture AMANDA 10/04/24 Logged 21:05 Urine Bacterial AMANDA 10/04/24 Logged Culture 21:05 Thyroid Stimulating LAB 10/04/24 Logged Hormone 21:05 Drug Screen LAB 10/04/24 Logged 21:05 Ceftriaxone Ivpb PHA 10/05/24 Verified Rocephin 10:00 Vancomycin Per PHA 10/04/24 Verified Pharmacy 21:15 Pantoprazole Tablet PHA 10/05/24 Verified (Protonix Tablet) 10:00 Enoxaparin Sodium PHA 10/05/24 Verified (Lovenox) 10:00 Consistent DIET 10/05/24 Verified Carb(Ccho)Diabetes Breakfast Date of Service: Oct 04, 2024 Billing Provider: STACEY KHAN MD Common Visit Codes: 12710-[id number] INP/OBS CARE (HIGH) Secondary Visit Codes: 64399-[id number] CARE PLAN 30 MINUTES ELBERT NAGEL Oct 04, 2024 21:12 STACEY KHAN MD Oct 05, 2024 11:16
[2024-10-04] MEDS ORDERED: VANCOMYCIN PER PHARMACY 0 MG IV SCH (21:15)
[2024-10-04] MEDS ORDERED: DEXTROSE (50%) 50ML SYRG IV PRN (21:30)
[2024-10-04] MEDS: SODIUM CHLORIDE 0.9% 250 ML IV ONE (21:30)
[2024-10-04] MEDS: ACCU-CHEK COMFORT CURVE STRIP VI SCH (22:00)
[2024-10-04] MEDS: InsuLIN REG 1unit/0.01ml Soln (100units/ml) SC SCH (22:49)
[2024-10-04 22:55] LABS: Free T3 2.06 pg/mL (2.3-4.2); Free T4 (Free Thyroxine) 1.23 ng/dL (0.89-1.76)
[2024-10-04] MEDS: INSULIN LANTUS (GLARGINE) 1 /0.01ml (100units/ml) SC ONE (23:37)
[2024-10-05] VITALS (11 sets, daily range): BP systolic 99–129; BP diastolic 60–89; PULSE 70–97; RESP 13–20; TEMP 97.3–99.2; O2SAT 0–98
--- NOTE | 2024-10-05 00:12 | DVH ---
ULTRASOUND SOFT TISSUE HEAD AND NECK CLINICAL INDICATION: Hyperthyroidism TECHNIQUE: Multiple real time sonographic images of the thyroid were obtained. COMPARISON: None FINDINGS: The right thyroid gland measures 3.4 x 2.2 x 2.5 cm. The left thyroid gland measures approximately 3.5 x 1.9 x 2.3 cm. The isthmus measures 0.2 cm. No nodules. Normal vascularity. IMPRESSION: 1. Normal Thyroid.
[2024-10-05] MEDS ORDERED: HYDROcodone-ACET 5/325MG TAB PO PRN (02:00)
[2024-10-05] MEDS: HYDROcodone-ACET 5/325MG TAB PO PRN (02:24)
[2024-10-05 03:39] LABS: COVID19 ANTIGEN SOFIA FIA NEGATIVE (NEGATIVE)
[2024-10-05 03:42] LABS: Rapid Influenza B Negative (Negative)
[2024-10-05 03:45] LABS: Rapid Influenza A Positive (Negative)
[2024-10-05] MEDS: InsuLIN REG 1unit/0.01ml Soln (100units/ml) SC SCH (06:43)
[2024-10-05 07:15] LABS: Basophils # (auto) 0 10 ^3/uL (0-0.2); Basophils % (auto) 0.5 % (0.0-2.0); Eosinophils # (auto) 0 10 ^3/uL (0-0.8); Eosinophils % (auto) 0.1 % (0.0-7.0); Hematocrit 40.6 % (36.0-46.0); Hemoglobin 13.8 g/dL (12.2-16.2); Lymphocytes # (auto) 1.4 10 ^3/uL (0.4-5.4); Lymphocytes % (auto) 35.8 % (10.0-50.0); Mean Corpuscular Hemoglobin 30.4 pg (28.0-32.0); Mean Corpuscular Hgb Conc. 33.9 g/dL (32.0-36.0); Mean Corpuscular Volume 89.8 fL (80.0-100.0); Monocytes # (auto) 0.3 10 ^3/uL (0-1.3); Monocytes % (auto) 6.8 % (0.0-12.0); Neutrophils # (auto) 2.2 10 ^3/uL (1.6-8.6); Neutrophils % (auto) 56.8 % (37.0-80.0); Platelet Count (auto) 196 10^3/uL (140-450); Red Blood Cells 4.53 10^6/uL (4.0-5.20); Red Cell Distribution Width 13.3 % (11.8-14.3); White Blood Cell 3.9 10^3/uL (4.4-10.8)
[2024-10-05 07:25] LABS: Chloride 105 mmol/L (98-107); Potassium 3.9 mmol/L (3.5-5.1)
[2024-10-05 07:26] LABS: Anion Gap 9 (5-15)
[2024-10-05 07:31] LABS: BUN/Creatinine Ratio 13.8 (10.0-20.0); Blood Urea Nitrogen 13 mg/dL (9-23)
[2024-10-05 07:43] LABS: Calcium 7.7 mg/dL (8.7-10.4); Carbon Dioxide 20 mmol/L (20-31); Glucose 199 mg/dL (74-106); Sodium 134 mmol/L (136-145)
[2024-10-05] MEDS: PANTOPRAZOLE 40 MG TAB PO SCH (10:04)
[2024-10-05] MEDS: OSELTAMIVIR 30 MG CAP PO SCH (10:05)
[2024-10-05] MEDS: ENOXAPARIN SOD 40 MG/0.4 ML SYRINGE SC SCH (10:07)
[2024-10-05] MEDS: IPRATROPIUM BROM 0.5 MG/2.5ML INH SOL NEB SCH (12:45)
[2024-10-05] MEDS: VANCOMYCIN 500mg/100mL 100 ML IV SCH (14:57)
[2024-10-05] MEDS: ALBUTEROL SULF 2.5 MG/0.5ML(0.5%) NEB SOLN NEB PRN (18:07)
[2024-10-05] MEDS: INSULIN LANTUS (GLARGINE) 1 /0.01ml (100units/ml) SC SCH (19:15)
--- NOTE | 2024-10-05 19:59 | DVHPNRES ---
Progress Note Date Seen: Oct 05, 2024 Resident Creating Document: LUZ MARIA GARCIA VIJAYA Has the PT tested + for MRSA If YES, has PT been informed?: Yes Medical Necessity Reason Pt with a Central, PICC or Fol: No Subjective Review of Systems This is a 69-year-old female with a past medical history of type 2 diabetes mellitus who presented to the ED with generalized weakness, fatigue, low-grade fever, and a dry cough for the last three days. She reports not eating since yesterday and also complains of fever, chills, and intermittent shortness of breath for the past three days. She denies productive cough, chest pain, dizziness, diaphoresis, dysuria, hematuria, sick contact, recent travel, abdominal pain, nausea, vomiting, or any change in bowel habits. The patient has no primary care physician and does not take medication regularly. Her past surgical and family histories are unremarkable. She lives alone, is a nonsmoker, does not consume alcohol, and has never used drugs. Today, patient seen and examined at the bedside. Patient is feeling better and maintain saturation on room air. Patient reports: No new complaints, Feels better Changes from previous H/P or p: Changes Objective vital signs Vital Sign Date Time Temp Pulse Resp B/P (MAP) Pulse Ox O2 Delivery O2 Flow Rate FiO2 10/05/24 18:15 95 18 98 10/05/24 18:07 Room Air 10/05/24 18:07 0 21 10/05/24 17:00 99.2 129/89 (102) 99.2 medications Current Medications Medications Dose Ordered Sig/Suyapa Route Start Time Stop Time Status Last Admin Dose Admin Ceftriaxone Sodium 50 ml @ 100 mls/hr DAILY@2100 IV 10/05/24 21:00 Vancomycin HCl 0 ml @ 0 mls/hr UD IV 10/04/24 21:15 Pantoprazole Sodium 40 mg DAILY PO 10/05/24 10:00 10/05/24 10:04 40 MG Enoxaparin Sodium 40 mg DAILY SC 10/05/24 10:00 10/05/24 10:07 40 MG Diagnostic Test (Pha) 1 strip ACHS 10/04/24 22:00 10/05/24 16:58 1 STRIP Insulin Human Regular HS SC 10/04/24 22:00 10/04/24 22:49 10 UNITS Insulin Human Regular AC SC 10/05/24 07:00 10/05/24 17:20 3 UNITS Dextrose 50 ml UD PRN IV 10/04/24 21:30 Insulin Glargine 10 units QPM SC 10/05/24 18:00 10/05/24 19:15 10 UNITS Acetaminophen/ Hydrocodone Bitart 1 tab Q6HPRN PRN PO 10/05/24 02:15 Oseltamivir Phosphate 30 mg Q12HR PO 10/05/24 10:00 10/10/24 09:59 10/05/24 10:05 30 MG Ipratropium [place] 0.5 mg Q6HR NEB 10/05/24 12:00 10/05/24 18:07 0.5 MG Albuterol 2.5 mg Q6HPRN PRN NEB 10/05/24 08:45 10/05/24 18:07 2.5 MG Vancomycin HCl 100 ml @ 200 mls/hr Q12H IV 10/05/24 15:00 10/05/24 14:57 200 MLS/HR Examination General Appearance: Alert, Oriented X3, Cooperative, No acute distress HEENT: Atraumatic, PERRLA, EOMI, Mucous membrane moist/pink Respiratory: Bilateral lower zone crepitation Cardiovascular: Regular rate, Normal S1, Normal S2, No murmurs, no chest wall tenderness Abdominal: Normal bowel sounds, Soft, No tenderness, No hepatospenomegaly, No masses Extremities: No clubbing, No cyanosis, No edema, Normal pulses, No tenderness/swelling Skin: No rashes, No breakdown, No significant lesion Neuro: Normal gait, Normal speech, Strength at 5/5 X4 ext, Normal tone, Sensation intact, Cranial nerves 3-12 NL, Reflexes 2+ Psych/Mental Status: Mental status NL, Mood NL laboratory and microbiology Laboratory Tests 10/05/24 06:55 Test 10/05/24 06:55 Range/Units Serum Glucose 199 H 74-106 mg/dL Microbiology Date/Time Source Procedure Growth Status 10/04/24 18:06 Blood Blood Culture - Preliminary NO GROWTH AFTER 24 HOURS OF INCUBATION. Resulted Labs and/or images reviewed: Labs reviewed by me, Image(s) reviewed by me Problem List/Assessment/Plan Problem List/Assessment/Plan Acute hypoxic respiratory failure, likely due to influenza type a/pneumonia Gram-positive Gram-negative Pneumonia, likely due to Gram-positive Gram-negative influenza type A Sepsis, likely due to pneumonia Influenza type a Chest x-ray shows bilateral lower zone infiltration Injection ceftriaxone and azithromycin Tamiflu 75 mg b.i.d. Subclinical hypothyroidism TSH is 0.18 Free T3 decreased Monitoring Mild hyponatremia, monitoring Vitamin-D deficiency, supplemented Vitamin B12 deficiency, supplemented Uncontrolled diabetes mellitus Hb A1c is more than 40 Insulin according to sliding scale Diabetic education provided DIET: Regular DVT PROPHYLAXIS: Lovenox GI PROPHYLAXIS:: Protonix BOWEL REGIMEN: Colace 100 mg as needed CODE STATUS: Goal of care discussed for more 27, full code DISPOSITION: Med surge Patient's status discussed with patient. Case discussed with Dr. Khan Plan discussed with: Patient, Other (RN) My Orders My Orders Orders - LUZ MARIA GARCIA Procedure Category Date Status Time Respiratory Culture AMANDA 10/05/24 Logged W/ Gs 08:32 Ipratropium Medneb PHA 10/05/24 In Process (Atrovent Medneb) 12:00 Albuterol Medneb PHA 10/05/24 In Process (Ventolin Medneb) 08:45 Basic Metabolic Panel LAB 10/06/24 Verified 04:00 Date of Service: Oct 05, 2024 Billing Provider: STACEY KHAN MD Common Visit Codes: [id number] INP/OBS CARE(HIGH) LUZ MARIA GARCIA RESDIENT Oct 05, 2024 19:59 STACEY KHAN MD Oct 06, 2024 11:39
[2024-10-05] MEDS: cefTRIAXone 1GM/50ML D5W 50 ML IV SCH (21:53)
[2024-10-06] VITALS (11 sets, daily range): BP systolic 97–130; BP diastolic 57–88; PULSE 81–100; RESP 16–20; TEMP 97.8–98.2; O2SAT 91–100
[2024-10-06] MEDS: VANCOMYCIN 1GM/250ML KIT 250 ML IV ONE (03:22)
[2024-10-06 06:15] LABS: Basophils # (auto) 0 10 ^3/uL (0-0.2); Basophils % (auto) 0.6 % (0.0-2.0); Eosinophils # (auto) 0 10 ^3/uL (0-0.8); Eosinophils % (auto) 0.3 % (0.0-7.0); Hemoglobin 13.2 g/dL (12.2-16.2); Lymphocytes # (auto) 1.7 10 ^3/uL (0.4-5.4); Lymphocytes % (auto) 45.7 % (10.0-50.0); Mean Corpuscular Hgb Conc. 33.8 g/dL (32.0-36.0); Mean Corpuscular Volume 88.9 fL (80.0-100.0); Monocytes # (auto) 0.3 10 ^3/uL (0-1.3); Monocytes % (auto) 7.7 % (0.0-12.0); Neutrophils # (auto) 1.7 10 ^3/uL (1.6-8.6); Neutrophils % (auto) 45.7 % (37.0-80.0); Nucleated Red Blood Cells % 0.1 %; Platelet Count (auto) 185 10^3/uL (140-450); Red Blood Cells 4.39 10^6/uL (4.0-5.20); Red Cell Distribution Width 13.5 % (11.8-14.3); White Blood Cell 3.7 10^3/uL (4.4-10.8)
[2024-10-06 06:23] LABS: Anion Gap 9 (5-15); Carbon Dioxide 23 mmol/L (20-31); Chloride 104 mmol/L (98-107); Potassium 3.5 mmol/L (3.5-5.1)
[2024-10-06 06:24] LABS: Calcium 8.9 mg/dL (8.7-10.4)
[2024-10-06 06:29] LABS: BUN/Creatinine Ratio 15.2 (10.0-20.0); Blood Urea Nitrogen 15 mg/dL (9-23)
[2024-10-06 06:32] LABS: Glucose 166 mg/dL (74-106); Sodium 136 mmol/L (136-145)
--- NOTE | 2024-10-06 12:42 | ECG ---
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
[2024-10-06] MEDS ORDERED: INSU100I61 SC (14:20)
[2024-10-06] MEDS ORDERED: OSEL75CA5 PO (14:20)
[2024-10-06] MEDS ORDERED: INSU100I67 SC (14:20)
[2024-10-06] MEDS ORDERED: LANC28MI39 XX (14:20)
[2024-10-06] MEDS ORDERED: GLUC-224 VI (14:20)
[2024-10-06] MEDS ORDERED: ALCO1PAD13 XX ×2 (14:20→18:07)
[2024-10-06] MEDS ORDERED: BLOO-169 XX (14:20)
[2024-10-06] MEDS ORDERED: AZIT500T66 PO (14:21)
--- NOTE | 2024-10-06 16:21 | DVHDSRES ---
Discharge Summary Date of Admission Resident Creating Document: LUZ MARIA GARCIA RESDIENT Oct 04, 2024 at 21:05 Date of Discharge: Oct 06, 2024 Admitting Diagnosis Sepsis due to unknown etiology Labs/Diagnostic Data: Laboratory Results Test 10/06/24 11:37 10/06/24 04:27 10/05/24 06:55 10/05/24 01:10 POC Glucose 260 mg/dl (70-106) White Blood Count 3.7 10^3/uL (4.4-10.8) Red Blood Count 4.39 10^6/uL (4.0-5.20) Hemoglobin 13.2 g/dL (12.2-16.2) Hematocrit 39.0 % (36.0-46.0) Mean Corpuscular Volume 88.9 fL (80.0-100.0) Mean Corpuscular Hemoglobin 30.0 pg (28.0-32.0) Mean Corpuscular Hemoglobin Concent 33.8 g/dL (32.0-36.0) Red Cell Distribution Width 13.5 % (11.8-14.3) Platelet Count 185 10^3/uL (140-450) Mean Platelet Volume 8.0 fL (6.9-10.8) Neutrophils (%) (Auto) 45.7 % (37.0-80.0) Lymphocytes (%) (Auto) 45.7 % (10.0-50.0) Monocytes (%) (Auto) 7.7 % (0.0-12.0) Eosinophils (%) (Auto) 0.3 % (0.0-7.0) Basophils (%) (Auto) 0.6 % (0.0-2.0) Neutrophils # (Auto) 1.7 10 ^3/uL (1.6-8.6) Lymphocytes # (Auto) 1.7 10 ^3/uL (0.4-5.4) Monocytes # (Auto) 0.3 10 ^3/uL (0-1.3) Eosinophils # (Auto) 0 10 ^3/uL (0-0.8) Basophils # (Auto) 0 10 ^3/uL (0-0.2) Nucleated Red Blood Cells 0.1 % Sodium Level 136 mmol/L (136-145) Potassium Level 3.5 mmol/L (3.5-5.1) Chloride Level 104 mmol/L (98-107) Carbon Dioxide Level 23 mmol/L (20-31) Anion Gap 9 (5-15) Blood Urea Nitrogen 15 mg/dL (9-23) Creatinine 0.99 mg/dL (0.550-1.02) Glomerular Filtration Rate Calc 62 mL/min (>90) BUN/Creatinine Ratio 15.2 (10.0-20.0) Serum Glucose 166 mg/dL (74-106) Calcium Level 8.9 mg/dL (8.7-10.4) Vitamin B12 Level 640 pg/mL (211-911) Vitamin D 25-Hydroxy 24.8 ng/mL (30.0-100) Lactic Acid Level 1.7 mmol/L (0.4-2.0) Test 10/05/24 00:50 10/04/24 18:39 10/04/24 18:06 Influenza Type A Antigen Positive (Negative) Influenza Type B Antigen Negative (Negative) SARS-CoV-2 Antigen (Rapid) Negative (NEGATIVE) Urine Color Light-yellow (Yellow) Urine Clarity Clear (Clear) Urine pH 5.5 (5.0-9.0) Urine Specific [place] 1.036 (1.001-1.035) Urine Protein Trace (Negative) Urine Ketones 3+ (Negative) Urine Blood Negative /uL (Negative) Urine Nitrite Negative (Negative) Urine Bilirubin Negative (Negative) Urine Urobilinogen Normal mg/dL (Negative) Urine Leukocyte Esterase Negative /uL (Negative) Urine RBC 1 /hpf (0 - 4) Urine WBC 2 /hpf (0 - 5) Urine Squamous Epithelial Cells Few /hpf (<5) Urine Bacteria None seen /hpf (None Seen) Urine Glucose 4+ mg/dL (Normal) Hemoglobin A1c > 14.0 % A1C (<5.7) Total Bilirubin 0.5 mg/dL (0.2-1.0) Aspartate Amino Transferase (AST) 22 U/L (13-40) Alanine Aminotransferase (ALT) 22 U/L (7-40) Alkaline Phosphatase 91 U/L (46-116) Total Protein 7.3 g/dL (5.7-8.2) Albumin 4.2 g/dL (3.2-4.8) Beta-Hydroxybutyric Acid 2.547 mmol/L (< 0.4) Thyroid Stimulating Hormone (TSH) 0.18 uIU/mL (0.55-4.78) Free Thyroxine (T4) Calculated 1.23 ng/dL (0.89-1.76) Free Triiodothyronine (T3) pg/mL 2.06 pg/mL (2.3-4.2) Plasma/Serum Blood Alcohol < 3.0 mg/dL (<10) Other Laboratory Tests 10/06/24 04:27 Brief Hx & Hospital Course: This is a 69-year-old female with a past medical history of type 2 diabetes mellitus who presented to the ED with generalized weakness, fatigue, low-grade fever, and a dry cough for the last three days. She reports not eating since yesterday and also complains of fever, chills, and intermittent shortness of breath for the past three days. She denies productive cough, chest pain, dizziness, diaphoresis, dysuria, hematuria, sick contact, recent travel, abdominal pain, nausea, vomiting, or any change in bowel habits. The patient has no primary care physician and does not take medication regularly. Her past surgical and family histories are unremarkable. She lives alone, is a nonsmoker, does not consume alcohol, and has never used drugs. Chest x-ray showed bilateral zone infiltration, and influenza type a antigen was positive. The patient was put on acute hypoxic respiratory failure due to b acterial pneumonia and influenza type a and the patient was given injection ceftriaxone, azithromycin and Tamiflu. Electrolyte imbalance including hyponatremia and vitamin D deficiency and vitamin B12 levels deficiency were corrected. Hb A1c was found to be more than 14, during the hospital patient we are given Lantus 10 units during the night and insulin regular according to the sliding scale. On 10/06, the patient was feeling better, patient is clinically and hemodynamically was stable. Discharge plan discussed with the patient and the patient was discharged. Discharge plan: Follow up with the PCP within 1 week of the discharge. Follow up with the discharge Clinic within 1 week of the discharge. Tablet Tamiflu 75 mg b.i.d. for 3 more days Tablet azithromycin 500 mg daily for 5 days Insulin detemir 10 units during the night Insulin aspart 6 units 3 times a day before meal Operations or Procedures [address] [address] Ph: [phone] DIAGNOSTIC IMAGING Diagnostic Imaging Report : [id number] Signed PATIENT: STEPHANIE ROE ACCT: [id number] UNIT: [id number] : 1955 LOC: ER ROOM / BED: / AGE / SEX: 69 / F ADM STATUS: REG ER SERVICE 1710 ORDERING PHYSICIAN: TEODORO HEARN MD PROCEDURE(s): CXRP - CHEST PORTABLE REASON: weakness ORDER NUMBER(s): [id number], ACCESSION NUMBER(s): [id number] CHEST RADIOGRAPH Indication: weakness Technique: Single frontal view of the chest was obtained COMPARISON: None FINDINGS: Lines and Tubes: None Lungs: Clear Pleura: No effusion. No pneumothorax. Cardiomediastinal contours: Unremarkable Bones: Unremarkable IMPRESSION: 1. No acute disease. 2. Mild ectasia descending thoracic aorta. ATED BY: CHIN FERRARI MD DICTATED DATE/TIME: 10/04/241820 SIGNED BY: CHIN FERRARI MD SIGNED DATE/TIME: 10/04/241820 CC: [place] [id number] Ph: [phone] DIAGNOSTIC IMAGING Diagnostic Imaging Report : [id number] Signed PATIENT: STEPHANIE ROE ACCT: [id number] UNIT: [id number] : 1955 LOC: CENTRAL ROOM / BED: 0223 / A AGE / SEX: 69 / F ADM STATUS: ADM IN SERVICE 26 ORDERING PHYSICIAN: ELBERT NAGEL PROCEDURE(s): THYDU - THYROID REASON: Hyperthyroidism ORDER NUMBER(s): [id number], ACCESSION NUMBER(s): [id number] ULTRASOUND SOFT TISSUE HEAD AND NECK CLINICAL INDICATION: Hyperthyroidism TECHNIQUE: Multiple real time sonographic images of the thyroid were obtained. COMPARISON: None FINDINGS: The right thyroid gland measures 3.4 x 2.2 x 2.5 cm. The left thyroid gland measures approximately 3.5 x 1.9 x 2.3 cm. The isthmus measures 0.2 cm. No nodules. Normal vascularity. IMPRESSION: 1. Normal Thyroid. ATED BY: ABA BAR MD DICTATED DATE/TIME: 10/05/248 SIGNED BY: ABA BAR MD SIGNED DATE/TIME: 10/05/248 CC: Condition at Discharge: Good Final Diagnosis/Problems List Acute hypoxic respiratory failure, likely due to influenza type a/pneumonia Gram-positive Gram-negative Pneumonia, likely due to Gram-positive Gram-negative influenza type A Sepsis, likely due to pneumonia Influenza type a Subclinical hypothyroidism Mild hyponatremia, monitoring Vitamin-D deficiency, supplemented Vitamin B12 deficiency, supplemented Uncontrolled diabetes mellitus DKA ruled out Discharge Disposition: Home Discharge Instruct/Medications Diet: Consistent carbohydrate Activity: No Restrictions, As Tolerated Follow Up/Referral: Follow up with the PCP within 1 week after discharge. Follow up with the discharge Clinic within 1 week after discharge. Medications: Since 5 mg b.i.d. for 3 days Azithromycin 500 mg daily for 5 days Discharge Statement: "Patient was advised to return to the ER or call 911 if any headaches, dizziness, shortness of breath, chest pain, abdominal pain, bleeding, fevers, or worsening of medical condition. Patient was counseled about treatment plan, medications, possible side effects, patientverbalized understanding. All questions were answered to the best of my ability. This discharge took greater then 30 minutes in planning, reviewing documentation, counseling the patient, and discussing with other team members." ASSESSMENT ASSESSMENT Assessment Pneumonias likely to Gram-positive Gram-negative/viral Influenza Date of Service: Oct 06, 2024 Billing Provider: LAURITA LUCIO MD Common Visit Codes: [id number] DISCH DAY >30min LUZ MARIA GARCIA RESDIENT Oct 06, 2024 16:21 LAURITA LUCIO MD Oct 07, 2024 09:26
[2024-10-06] MEDS ORDERED: [UNRECOGNIZED DRUG - CODE] XX (18:07)
[2024-10-06] MEDS ORDERED: BLOO1KIT60 XX (18:07)
[2024-10-06] MEDS ORDERED: INSU31MI32 XX (18:07)
== END 2024-10-06 16:00 | disposition home or self-care (01) | DRG 720 ==
LOC: EDBD 17:00 → ER 17:06 → OVERFLOW 21:05 → CENTRAL 23:56 → OVERFLOW 10-05 04:49 → TELE-CENTR 10-05 10:52 → CENTRAL 10-06 15:26
PROVIDERS: ADMIT Student in an Organized Health Care Education/Training Program; ATTEND Student in an Organized Health Care Education/Training Program
DX: A41.50 Gram-negative sepsis, unspecified (principal); J96.01 Acute respiratory failure with hypoxia; J10.08 Influenza due to other identified influenza virus with other specified pneumonia; J15.69 Pneumonia due to other Gram-negative bacteria; E87.1 Hypo-osmolality and hyponatremia; J15.9 Unspecified bacterial pneumonia; Z20.822 Contact with and (suspected) exposure to COVID-19; E11.65 Type 2 diabetes mellitus with hyperglycemia; E03.8 Other specified hypothyroidism; E55.9 Vitamin D deficiency, unspecified; E53.8 Deficiency of other specified B group vitamins
CPT/HCPCS: 36415; 71045; 76536; 80048; 80053; 80320; 81001; 82010; 82306; 82607; 82962; 83036; 83605; 84439; 84443; 84481; 85025; 87040; 87081; 87426; 87804; 93005; 94640; 96361; 96365; 96368; 99291; G0378; G9035; J1815

== ENCOUNTER → 2025-02-01 | Outpatient (CLI) | payer MEDICAID ==
[~2025-02-01] MED LIST changes: +ALCO1PAD13 XX; +AZIT500T66 PO; +BLOO-169 XX; +BLOO1KIT60 XX; +GLUC-224 VI; +INSU100I61 SC; +INSU100I67 SC; +INSU31MI32 XX; +LANC28MI39 XX; -NAP500T PO; +OSEL75CA5 PO; +[UNRECOGNIZED DRUG - CODE] XX
[2025-02-01 09:12] LABS: Basophils # (auto) 0 10 ^3/uL (0-0.2); Basophils % (auto) 0.8 % (0.0-2.0); Eosinophils # (auto) 0.1 10 ^3/uL (0-0.8); Eosinophils % (auto) 2.5 % (0.0-7.0); Hematocrit 42.2 % (36.0-46.0); Hemoglobin 14.5 g/dL (12.2-16.2); Lymphocytes # (auto) 1.7 10 ^3/uL (0.4-5.4); Mean Corpuscular Hemoglobin 30.1 pg (28.0-32.0); Mean Corpuscular Hgb Conc. 34.4 g/dL (32.0-36.0); Mean Corpuscular Volume 87.5 fL (80.0-100.0); Monocytes # (auto) 0.3 10 ^3/uL (0-1.3); Monocytes % (auto) 6.1 % (0.0-12.0); Neutrophils # (auto) 2.3 10 ^3/uL (1.6-8.6); Neutrophils % (auto) 51.6 % (37.0-80.0); Platelet Count (auto) 289 10^3/uL (140-450); Red Blood Cells 4.82 10^6/uL (4.0-5.20); Red Cell Distribution Width 13.6 % (11.8-14.3); White Blood Cell 4.4 10^3/uL (4.4-10.8)
[2025-02-01 10:36] LABS: Creatinine, Urine 230.14 mg/dL (30.0-125.0)
== END | disposition home or self-care (01) ==
LOC: LAB 08:39
PROVIDERS: ATTEND Internal Medicine
DX: I10 Essential (primary) hypertension (principal); E11.69 Type 2 diabetes mellitus with other specified complication; E78.49 Other hyperlipidemia
CPT/HCPCS: 36415; 82043; 82570; 83036; 85025